=== PATIENT | male | born 1995 | race Caucasian/White ===

== ENCOUNTER 2016-09-26 12:37 | Emergency (ER) | payer BC ==
[2016-09-26 13:19] VITALS: BP 123/68
--- NOTE | 2016-09-26 13:59 | UC ---
Abdominal Pain Male HPI - HPI Summary HPI Summary: "sour stomach" for years. Seems worse in past few months. Chews tobacco, drinks a lot of energy drinks (Red Bull, etc). Tums don't help. Occasionally feels heartburn, usually just a nauseated "sour" feeling in epigastric area. No weight loss, has gained in past few months. No fever. NO vomiting or diarrhea. Dad has gastritis/ulcer issues. - History of Current Complaint Chief Complaint: UCAbdominalPain Stated Complaint: ABD PAIN Time Seen by Provider: 09/26/16 13:20 Hx Obtained From: Patient Onset/Duration: Gradual Onset, Lasting Weeks - months Timing: Constant Severity Initially: Mild Severity Currently: Mild - waxes and wanes Radiates: No Character: Aching, Burning, Cramping, Dull Aggravating Factor(s):: Food Alleviating Factor(s): Nothing Associated Signs And Symptoms: Positive: Nausea - Risk Factors Testicular Torsion: Negative Cardiac Risk Factors: Negative - Allergies/Home Medications Allergies/Adverse Reactions: Allergies Allergy/AdvReac Type Severity Reaction Status Date / Time No Known Allergies Allergy Verified 09/26/16 13:14 Home Medications: Home Medications Ibuprofen TAB* [Advil TAB*] 400 mg PO Q6H PRN 09/26/16 [History Confirmed ] PMH/Surg Hx/FS Hx/Imm Hx Previously Healthy: Yes - Surgical History Surgical History: None - Family History Known Family History: Positive: Other - dad with stomach issues - Social History 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, mentions sleep problems with this schedule Alcohol Use: Occasionally Substance Use Type: None Smoking Status (MU): Current Every Day Smoker Type: Smokeless Tobacco Amount Used/How Often: 1 can q 2 days - Immunization History Most Recent Influenza Vaccination: not this season Most Recent Tetanus Shot: unknown Review of Systems Constitutional: Negative Skin: Negative Eyes: Negative ENT: Negative Respiratory: Negative Cardiovascular: Negative Gastrointestinal: Abdominal Pain Genitourinary: Negative Motor: Negative Neurovascular: Negative Musculoskeletal: Negative Neurological: Negative Psychological: Negative All Other Systems Reviewed And Are Negative: Yes Physical Exam Triage Information Reviewed: Yes Appearance: Well-Appearing, No Pain Distress, Well-Nourished Vital Signs: Initial Vital Signs Temp 98.6 F 09/26/16 13:16 Pulse 65 09/26/16 13:16 Resp 16 09/26/16 13:16 BP 123/68 09/26/16 13:16 Pulse Ox 100 09/26/16 13:16 Vital Signs Reviewed: Yes Eye Exam: Normal Neck exam: Normal Respiratory Exam: Normal Cardiovascular Exam: Normal Abdomen Description: Positive: No Organomegaly, Soft, Other: - mild epigastric tenderness. Negative: Bruit, CVA Tenderness (R), CVA Tenderness (L), Distended , Guarding, Hernia @, Hepatomegaly, McBurney's Point Tenderness, Peritoneal Signs, Pulsatile Mass, Splenomegaly Musculoskeletal Exam: Normal Neurological Exam: Normal Psychological Exam: Normal Skin Exam: Normal Abd Pain Male Course/Dx - Course Course Of Treatment: urged to F/U with director of sports performance - Differential Dx/Clinical Impression Provider Diagnoses: GERD Discharge - Discharge Plan Condition: Stable Disposition: HOME Prescriptions: Omeprazole CAP* [Prilosec CAP* 20 MG] 20 mg PO BEDTIME #30 cap.dr Patient Education Materials: Gastroesophageal Reflux Disease (ED) Referrals: [facility]hele [place] [Primary Care Provider] - Melissa Manzo MD [Medical Doctor] - Additional Instructions: Take a swig of Mylanta or Maalox or other liquid antacid if your stomach is "sour" or painful or you feel heartburn. Start the omeprazole, it takes about a week before it will help with the pain Nicotine and caffeine will definitely make this problem worse. Try to get rid of them Stress and sleep deprivation will make stomach issues worse Follow up with Dr. Manzo (took the place of Dr. Bautista)
== END 2016-09-26 14:00 | disposition home or self-care (01) ==
LOC: UCCORT 12:37
DX: K21.9 Gastro-esophageal reflux disease without esophagitis (principal); F17.210 Nicotine dependence, cigarettes, uncomplicated
CPT/HCPCS: 99212; G0463